=== PATIENT | male | born 2005 ===

== ENCOUNTER 2024-08-30 15:39 | Inpatient (IN) | payer OTHER ==
[~2024-08-30] VITALS: Wt 69.0 kg
[2024-08-30 18:25] VITALS: BP 106/67
[2024-08-30 18:40] VITALS: BP 106/67
[2024-08-30] MEDS ORDERED: Haloperidol Lactate Inj. 5 MG/ML Injection IM PRN (19:45)
[2024-08-30] MEDS ORDERED: Ondansetron 4 MG SoluTab MM PRN (19:45)
[2024-08-30] MEDS ORDERED: Aluminum Hydroxide 320MG/5ML 473 ML PO PRN (19:50)
[2024-08-30] MEDS ORDERED: Polyethylene Glycol 3350 17 gm PO PRN (19:50)
[2024-08-30] MEDS ORDERED: DiphenhydrAMINE HCl 50 MG/ML 1ML Vial IM PRN (19:50)
--- NOTE | 2024-08-30 19:58 | NUR ---
ADMIT NOTE: PT TO [facility] AT 1806. PT A/O X4. PT IS A TRANSFER FROM [facility]. WITH A PLAN TO " KILL MYSELF BY ANY MEANS IF I HAVE TOO." PT WAS UNABLE TO LOCATE SISTER LAST NIGHT AT 1830 WHICH TRIGGERED HER INTO THE SI MODE. PT IS TRANSGENDER AND WANTS TO BE CALLED 'PAUL'. PT STATES TO BE SI AT THIS TIME. DENIES HI AND AVH. PT HAS A SUNBURN OF LIUS FELIPE PINK TO CHEST, SHOULDERS AND UPPER BACK AREA FROM WEARING A SUNDRESS YESTERDAY AND WALKING AROUND. PT 'S VOICE TONE IS SOFT AND MOOD IS GUARDED. GIVEN DINNER TO EAT. PT SAID THAT SHE HAS LOST OVER 100 POUNDS IN A YEAR FROM BEING HOMELESS. STATES IS SCARED OF DISCHARGE HAS NO PLACE TO GO. SHE WOULD EVENTUALLY LIKE TO MOVE TO [place] OR [place]. PT PLEASASNT AND COOPERATIVE. PT GIVEN TOUR OF THE UNIT AND TOLD OF THE RULES FOR GOING TO GROUPS, MEALS, SHOWERING, VISITATION HOURS AND PHONE TIMES. PT SAID SHE WOULD CALL HER MOTHER IN THE MORNING TO LET HER KNOW OF HER STATUS. PT TAKEN TO ROOM WHERE SHE WENT DIRECTLY TO BED PER HER WISHES. WILL CONTINUE TO MONITOR.
--- NOTE | 2024-08-30 23:10 | NUR ---
received report from TANNA Camarena at 0786. Patient sleeping currently. Respirations verified, Will continue close observation every 15 minutes for safety and comfort.
--- NOTE | 2024-08-31 04:26 | NUR ---
Patient has been sleeping since this RN took over care at 2230. Please see ADMISSION NOTE for details. Will continue close monitoring every 15 minutes for safety and comfort.
[2024-08-31 08:57] VITALS: BP 104/64
[2024-08-31] MEDS ORDERED: Multivitamins 1 Tab PO SCH (09:00)
[2024-08-31] MEDS ORDERED: Lidocaine HCl 4% Cream 5 GM TOP PRN (09:10)
[2024-08-31 12:33] LABS: CHOL/HDL RATIO 3.6; Cholesterol 185 mg/dL (50-200); HDL Cholesterol 51 mg/dL (>39); LDL/HDL RATIO 2.0; Low Density Lipoprotein Chol 103 mg/dL (<110); Triglycerides 156 mg/dL (30-140); Very Low Density Lipoprot Chol 31 mg/dL (6-28)
--- NOTE | 2024-08-31 17:47 | NUR ---
SHIFT SUMMARY ASSUMED PT CARE AT 1130. PT IS AA&O TO PERSON PLACE AND SITUATION. PT MOOD HAS FLUCTUATED THROUGHOUT THE DAY. THIS MORNING PT WAS IRRITABLE AND REFUSED TO GO TO GROUP. YELLING LOUDLY AT THIS RN THAT HER MENTAL HEALTH IS "TO FUCKED UP TO GO TO GROUP" PT WAS REDIRECTED AND ASKED NOT TO YELL AT STAFF. SHE DID GO TO ONE GROUP. SHE WAS ASKING TO BE DISCHARGED TO [place] TODAY THIS AFTERNOON. MOOD HAS IMPROVED AND SHE HAS BEEN IN DAYROOM PLAYING GAMES. SHE DID REPORTS SHE WAS FEELING " A LITTLE BETTER" SHE WOULD LIKE TO DC SOON POSSIBLE SHE FEELS "THIS PLACE IS NOT GOING TO HELP ME" WILL CONTINUE PLAN OF CARE.
[2024-08-31 20:48] VITALS: BP 110/66
--- NOTE | 2024-08-31 22:02 | NUR ---
MASS SCORE: PATIENT STATED THAT SHE WANTED ZYPREXA. "I USUALLY HAVE IT AT BEDTIME. I TOLD THE DOCTOR". SHE WAS TOLD IT WAS FOR WHEN SHE GETS AGITATED AND UNABLE TO CALM WITH OTHER COPING SKILLS. SHE STATED, "I PROMISE YOU, I WILL BE AGITATED IF YOU DON'T GIVE ME MY ZYPREXA." PATIENT WAS GIVEN ZYPREXA IN ORDER TO MAINTAIN A PEACEFUL MILIEU. SHE WAS ASKED TO TALK TO THE DOCTOR ABOUT IT TOMORROW, AND TO USE A POLITE VOICE TO BE BETTER HEARD. SHE AGREED THAT SHE WOULD DO THAT AND WENT TO BED. IT APPEARS TO BE EFFECTIVE, CONTINUING TO MONITOR.
--- NOTE | 2024-09-01 04:43 | NUR ---
SHIFT SUMMARY: PATIENT WAS IN THE DINING ROOM FINISHING DINNER AT THE BEGINNING OF THE SHIFT. PATIENT IDENTIFIES "SHE" AND THE NAME "PAUL". SHE CAME OUT AFTER DINNER AND SAT BY THE DOOR TO THE DAY ROOM, ASKING MULTIPLE STAFF TO OPEN IT. EACH STAFF EXPLAINED THAT IT WOULD BE OPEN SHORTLY, IT WAS. PATIENT THEN WATCHED A MOVIE AND WAS NOT INCREDIBLY CONVERSANT WITH RN DURING IT, STATING THAT SHE DIDN'T WANT TO BE DISTURBED WHILE WATCHING. SHE DID ANSWER SNAPPER ON QUESTIONS DURING A BREAK IN THE PROGRAM, IN A LOGICAL AND LINEAR MANNER. SHE DENIED SUICIDAL IDEATION, THOUGHTS OF SELF HARMING AND A/V/T HALLUCINATIONS. SHE STATED THAT SHE WANTED ZYPREXA AT BEDTIME. RN LOOKED IT UP AND EXPLAINED THAT THE WAY IT WAS ORDERED, IT WAS TO BE GIVEN FOR HIGH ANXIETY OR AGITATION. SHE STATED, "IF I DON'T GET IT, THERE WILL BE AGITATION". IT WAS GIVEN AND MASS SCORE NOTED. PATIENT STATES THAT SHE WILL ASK THE DR TO PRESCRIBE IT SCHEDULED FOR BEDTIME. SHE WAS ENCOURAGED TO ASK THE DOCTOR IN A CALM AND PLEASANT MANNER, AND STATED THAT SHE WOULD. SHE CONTINUED TO WATCH TELEVISION UNTIL SNACK AND WRAP UP GROUP AT 2030, WHICH SHE PARTICIPATED IN. SHE THEN WENT BACK TO THE DAY ROOM TO WATCH TELEVISION AND TALK WITH STAFF AND PEERS. SHE WENT TO BED AFTER TAKING ZYPREXA AT 2200, AND WAS NOTED TO BE RESTING QUIETLY WITH EYES CLOSED AND RESPIRATIONS CONFIRMED FOR THE REMAINDER OF THE SHIFT. CONTINUING TO MONITOR FOR SAFETY WITH Q15 MINUTE CHECKS.
[2024-09-01 08:54] VITALS: BP 114/64
--- NOTE | 2024-09-01 12:10 | NUR ---
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 PT UPSET STATING THAT WE'RE "CENSORING" HER AND THAT IT WAS RUDE AND THAT PT DOES NOT "CARE ABOUT ANYONES FEELINGS". PT ESCALATED AND BEGAN ARGUING/YELLING AT CREMATORY OPERATOR THEN WENT TO ROOM. PT REQUESTED LEAVING AMA, BUT DECLINED WHEN CREMATORY OPERATOR TALKED TO PT ABOUT AMA PAPER. PT IS NOW RESTING QUIETLY. ZYPREXA GIVEN PER EMAR. EDUCATED PT ON RULES/EXPECTATIONS OF UNIT AND BOUNDARIES SET W/ HOW PT INTERACTS W/ PEERS/STAFF.
--- NOTE | 2024-09-01 17:23 | NUR ---
SHIFT SUMMARY PT DENIES SI, HI, AVTH. SINCE PREVIOUS NOTE, PT HAD ONE MORE EVENT WHERE PT DID NOT WANT TO GO TO GROUPS AND BECAME AGITATED, BUT WAS ABLE TO DEESCALATE WHILE TALKING W/ LEXIE CISSE AND WENT TO LAST GROUP. PT OTHERWISE HAS BEEN IN ROOM OR IN DAY ROOM. INTERACTING W/ PEERS. PT DOES NOT APPEAR TO WANT TO PARTICIPATE IN CARE AND REQUIRES ENCOURAGEMENT. PT ALSO STATED SEVERAL TIMES THAT SHE WOULD LIKE TO DISCHARGE TO [place] [facility], BUT AT TIME OF THIS NOTE STATES SHE IS WILLING TO [facility] TO [facility] [place]. READ PREVIOUS NOTE FOR ACUTE EVENT.
[2024-09-01 19:41] VITALS: BP 116/63
--- NOTE | 2024-09-02 04:20 | NUR ---
SHIFT SUMMARY: PATIENT WAS IN HER ROOM RESTING QUIETLY AT THE BEGINNING OF THE SHIFT. SHE DID NOT RESPOND TO SOFT VOICE FROM RN. RN WAS ABLE TO GET HER UP FOR SNACK TIME, AND SHE RESPONDED TO FLOOR PERSON QUESTIONS IN WHAT APPEARED TO BE A LOGICAL AND LINEAR MANNER. SHE STATED THAT HER DAY WAS "GREAT" AND "I HAVE NO CONCERNS". SHE DID NOT VOICE ANY ISSUES OR PROBLEMS. SHE ASKED FOR AND RECEIVED SCHEDULED ZYPREXA. SHE THEN WENT BACK TO BED AND WAS NOTED TO BE RESTING QUIETLY WITH EYES CLOSED FOR THE REMAINDER OF THE SHIFT. CONTINUING TO MONITOR FOR SAFETY WITH Q15 MINUTE CHECKS.
[2024-09-02 08:57] VITALS: BP 122/75
--- NOTE | 2024-09-02 17:19 | NUR ---
BEHAVIOR- PATIENT BECAME EXTREAMLY AGITATED SHORTLY BEFORE 5PM, STATING THAT IF HE COULDN'T TALK TO THE FURNITURE MAKER, HE WANTED TO LEAVE AMA. HE HAD BEEN IN THE GROUP ROOM, WHEN HE FOUND OUT THAT DC RAIL SIGNAL MECHANIC WAS NOT HERE AND TOLD THE NURSE THAT SOMEONE BETTER SET HIM UP A RIDE TO [place]. HE THREATENED TO MAKE OUR NIGHT "HELL" IF WE WOULDN'T DO FOR HIM WHAT HE WAS ASKING. PATIENT WAS YELLING, POSTURING TOWARD THE NURSING DESK AND SAID HE'D JUST LEAVE AMA. SECURITY WAS CALLED, THE PROVIDER WAS UPDATED, THE PATIENT SAT AND WORKED THROUGH THE SAFETY PLAN AND AMA SHEET (NOT WANTING TO DO THESE FORMS), AND THEN DECIDED HE'D BE OKAY UNTIL MORNING HERE. PATIENT IS NOW IN HIS ROOM RESTING QUIETLY ON HIS BED. A PRN ZYPREXA WAS GIVEN DURING THIS TIME WELL. PATIENT WOULD LIKE TO CONTINUE TO BE PRESCRIBED ZYPREXA ONCE HE LEAVES. HE ASLO STATES THAT HE WILL CONTINUE TO USE ILICIT SUBSTANCES ONCE HE GETS OUT.
--- NOTE | 2024-09-02 18:22 | NUR ---
SHIFT NOTE PT WAS NOT COOPERATIVE WITH MEDICATIONS OR GROUPS. HE REFUSED TO TAKE HIS MEDS IN THE MORNING. PT REFUSED TO GO TO GROUP AND STATES "I'M JUST TIRED." DENIES ANY SI/HI/AVH. HE SLEPT THROUGHT MOST OF THE MORNING. HE GOT UP FOR MEALS AND SNACKS. IN THE EVENING HE HAD AN EVENT WITH THE CHARGE NURSE, PLEASE SEE JAMEEL CISSE NOTE, AND SECURITY HAD TO BE CALLED. PT WAS AGGRESSIVELY ANTAGONISTIC TO OTHER PATIENTS USING DERROGATORY NAME CALLING AND PROVOKING WITH WORDS DURING EVENING GROUP AND DURING TIME IN THE MILIEU. WHEN ATTEMPTS WERE MADE TO REDIRECT THE PT AND STOP THE BEHAVIOR PT REFUSED AND CONTINUED TO DO SO. ALL 15 MIN SAFETY CHECKS WERE COMPLETED.
--- NOTE | 2024-09-02 19:00 | NUR ---
AMA- PATIENTS DISCHARGE WAS COMPLETED TO THE BEST OF OUR ABILITY. PATIENT CHOOSE TO LEAVE AMA. NO MEDICATIONS WERE PRESCRIBED. PATIENT PLANS TO TAKE A BUS TO THE [place] IN [place]. ALL PATIENT BELONINGS WILL BE RETURNED TO THE PATIENT AND HE WILL SIGN FOR HIS DISCHARGE. HIS SAFETY PLAN AND AMA PAPERWORK ARE COMPLETED.
--- NOTE | 2024-09-02 19:22 | NUR ---
DISCHARGE NOTE: PATIENT LEFT VIA [facility] AT 1923. PATIENT LEFT AMA. NO DISCHARGE MEDICATIONS. DECLINED COUNSELING. NO JEWELRY, BELONGINGS GIVEN TO PATIENT. A AND O X3. ALL FORMS GIVEN TO PATIENT. PATIENT VERBALIZES WILL GO TO [facility].
== END 2024-09-02 19:23 | disposition left against medical advice (07) | DRG 885 ==
LOC: BHU 15:39
PROVIDERS: ADMIT Psychiatry & Neurology Psychiatry
DX: F33.2 Major depressive disorder, recurrent severe without psychotic features (principal); R45.851 Suicidal ideations; Z59.01 Sheltered homelessness; F43.25 Adjustment disorder with mixed disturbance of emotions and conduct; F19.10 Other psychoactive substance abuse, uncomplicated; Z53.29 Procedure and treatment not carried out because of patient's decision for other reasons; Z79.899 Other long term (current) drug therapy; Z88.8 Allergy status to other drugs, medicaments and biological substances; Z91.010 Allergy to peanuts
CPT/HCPCS: 36415; 80061; 83036; A9270

== ENCOUNTER 2024-09-02 21:37 | Observation (INO) | payer OTHER ==
[~2024-09-02] VITALS: Ht 177.8 cm; Wt 61.2 kg
[2024-09-02 22:27] LABS: BASOPHILS ABSOLUTE AUTO 0.09 K/mm3 (0.00-0.23); BASOPHILS PERCENT AUTO 1 % (0-2); EOSINOPHILS ABSOLUTE AUTO 0.18 K/mm3 (0.00-0.68); EOSINOPHILS PERCENT AUTO 3 % (0-6); Hematocrit 36.7 % (37.0-53.0); Hemoglobin 12.1 g/dL (13.5-17.5); IMMATURE GRAN ABSOLUTE AUTO 0.06 K/mm3 (0.00-0.10); IMMATURE GRAN PERCENT AUTO 1 % (0-1); LYMPHOCYTES ABSOLUTE AUTO 3.23 K/mm3 (0.84-5.20); LYMPHOCYTES PERCENT AUTO 47 % (21-46); MONOCYTES ABSOLUTE AUTO 0.65 K/mm3 (0.16-1.47); MONOCYTES PERCENT AUTO 9 % (4-13); Mean Corpuscular HGB Conc 33.0 g/dL (31.5-36.5); Mean Corpuscular Volume 85 fL (80-100); NEUTROPHILS ABSOLUTE AUTO 2.72 K/mm3 (1.96-9.15); NEUTROPHILS PERCENT AUTO 39 % (41-73); NRBC ABSOLUTE 0.00 K/mm3 (0.00-0.02); NRBC Auto 0.0 /100 WBC (0.0-0.2); Platelet Count 263 K/mm3 (150-400); RDW Coefficient Variation 15.4 % (11.7-14.2); RDW Standard Deviation 47.2 fL (35.1-46.3)
[2024-09-02 23:05] LABS: Ethanol (Alcohol), Blood, Med <3 mg/dL; Salicylate <1.7 mg/dL (2.8-20.0)
[2024-09-02 23:07] LABS: Alanine Aminotransfer (ALT/SGP 23 U/L (12-78); Albumin, Blood 3.1 g/dL (3.4-5.0); Albumin/Globulin Ratio 0.8 (0.8-1.8); Anion Gap 9 mmol/L (3-11); Aspartate Aminotrans (AST/SGOT 22 U/L (12-37); Bilirubin, Total 0.2 mg/dL (0.1-1.0); Blood Urea Nitrogen 12 mg/dL (8-24); CO2, Blood 24 mmol/L (21-32); Calcium, Blood 8.5 mg/dL (8.5-10.1); Chloride, Blood 109 mmol/L (98-108); Creatinine, Blood 0.52 mg/dL (0.60-1.20); Globulin, Blood 3.7 g/dL (2.2-4.0); Glucose, Blood 92 mg/dL (70-99); Potassium, Blood 4.2 mmol/L (3.5-5.5); Sodium, Blood 138 mmol/L (136-145); Total Protein, Blood 6.8 g/dL (6.4-8.2)
[2024-09-02 23:08] LABS: Acetaminophen, Random <2.0 ug/mL (10.0-30.0)
[2024-09-03 10:57] LABS: Source, Urine Clean Catch
[2024-09-03 11:02] LABS: Bilirubin, Urine Neg (Neg); Color, Urine Yellow (P-Yellow); Glucose Qualitative, Urine Neg (Neg); Ketones, Urine Neg (Neg); Leukocyte Esterase, Urine Neg (Neg); Protein, Urine Neg (Neg); Specific Gravity, Urine 1.015 (1.003-1.022); Urobilinogen, Urine NORM (Normal)
[2024-09-03 11:12] LABS: U Amphetamine Screen Not Detected; U Barbituate Screen Not Detected; U Benzodiazapine Screen DETECTED; U Buprenorphine Screen Not Detected; U Cannabinoids Screen Not Detected; U Cocaine Screen Not Detected; U Methadone Screen Not Detected; U Methamphetamine Screen Not Detected; U Opiates Screen Not Detected; U Oxycodone Screen Not Detected; U Phencyclidine Screen Not Detected
== END 2024-09-03 15:55 | disposition home or self-care (01) ==
LOC: ER 21:37 → EOR 22:19
PROVIDERS: ADMIT Student in an Organized Health Care Education/Training Program
DX: F11.20 Opioid dependence, uncomplicated (principal); R45.851 Suicidal ideations; Z91.010 Allergy to peanuts; Z88.5 Allergy status to narcotic agent; Z88.8 Allergy status to other drugs, medicaments and biological substances
CPT/HCPCS: 80053; 80320; 81003; 85025; 99285; G0378; G0480